=== PATIENT | male | born 1970 | race Caucasian/White ===

== ENCOUNTER 2017-01-10 21:24 | Emergency (ER) | payer MEDICAID ==
[2017-01-10 21:37] VITALS: BP 96/80; PULSE 53; RESP 16; TEMP 98.1; O2SAT 98
--- NOTE | 2017-01-10 22:32 | EDPHY ---
H & P Stated Complaint: R lateral knee pain after running. Time Seen by Provider: 01/10/17 22:31 - Personal History Current Tetanus/Diphtheria Vaccine: Unsure Current Tetanus Diphtheria and Acellular Pertussis (TDAP): Unsure - Medical/Surgical History Hx Asthma: No Hx Chronic Respiratory Disease: No Hx Diabetes: No Hx Cardiac Disease: No Hx Renal Disease: No Hx Cirrhosis: No Hx Alcoholism: Yes Hx HIV/AIDS: No Hx Splenectomy or Spleen Trauma: No Other PMH: anxiety, hx alcoholism, depression. - Social History Smoking Status: Never smoked Constitutional: Initial Vital Signs Temperature (C) 36.7 C 01/10/17 21:33 Heart Rate 53 L 01/10/17 21:33 Respiratory Rate 16 01/10/17 21:33 Blood Pressure 96/80 L 01/10/17 21:33 O2 Sat (%) 98 01/10/17 21:33 O2 Delivery Mode Room Air Allergies/Adverse Reactions: No Known Allergies Allergy (Verified 01/10/17 21:37) Home Medications: Medication Instructions Recorded Ibuprofen [Motrin (*)] 200 mg PO DAILY PRN 03/02/16 Acetaminophen [Tylenol 325mg (*)] 650 mg PO Q4 PRN #0 tab 03/04/16 Hydrocodone/APAP 5/325 [[place] 1 - 2 each PO Q4-6PRN PRN #11 tab 01/10/17 5/325] Medical Decision Making - Diagnostics Imaging Results: Imaging Impressions Knee X-Ray 01/10/17 22:36 Impression: 1. There is no acute or subacute osseous abnormality. If there is further clinical concern regarding the patient's lateral knee pain, consider MR imaging. 2. Vascular calcifications. Clinical correlation is suggested. Imaging: I viewed and interpreted images myself ED Course/Re-evaluation: CHIEF COMPLAINT: Right knee pain HISTORY OF PRESENT ILLNESS: The patient is a 46 y/o male complaining of right knee pain onset 2 weeks ago while running. He denies any obvious precipitating trauma. His pain is aggravated by bearing weight. No weakness or paresthesias. Patient has a history of alcoholism. REVIEW OF SYSTEMS: A 10 point review of systems was performed and is negative with the exception of the elements mentioned in the history of present illness. PHYSICAL EXAM: HR, BP, O2 Sat, RR. Temp noted General Appearance: Alert, well hydrated, appropriate, and non-toxic appearing. Head: Atraumatic without scalp tenderness or obvious injury Eyes: Pupils equal, round, reactive to light and accommodation, EOMI, no trauma , no injection. Ears: Clear bilaterally, no perforation, normal landmarks Nose: Atraumatic, no rhinorrhea, clear. Throat: There is no erythema or exudates, no lesions, normal tonsils, mucus membranes moist. Neck: Supple, nontender, no lymphadenopathy. Respiratory: No retractions, no distress, no wheezes, and no accessory muscle use. Lungs are clear to auscultation bilaterally. Cardiovascular: Regular rate and rhythm, no murmurs, rubs, or gallops. Good capillary refill all extremities. Gastrointestinal: Abdomen is soft, nontender, non-distended, no masses, no rebound, no guarding, no peritoneal signs. Musculoskeletal: Mild tenderness to right lateral knee. Normal active ROM of all extremities, atraumatic. Neurological: Alert, appropriate, and interactive. Nonfocal neuro exam. Skin: No rashes, good turgor, no nodules on palpation. Past medical history: Alcoholism Past surgical history: denies Family history: noncontributory Social history: Avid runner. Lives in [place]. Alcoholism DIAGNOSTICS/PROCEDURES/CRITICAL CARE TIME: Knee x-ray: negative DIFFERENTIAL DIAGNOSIS: The differential diagnosis for the patient's knee injury included but was not limited to fracture, ligamentous injury, contusion, muscular strain, and meniscus injury. MEDICAL DECISION MAKING: This is a 46 y/o male who presents with a 2-week history of right knee pain that began while running. He has been able to bear weight, but with some pain. He is neurovascularly intact. Plan for x-ray imaging to rule out fracture. X-ray is negative. Reassessed patient and recommended outpatient follow up with ortho. He will be discharged in a knee immobilizer. Standard return precautions given. He is comfortable with this plan. Departure - Departure Disposition: Home, Routine, Self-Care Clinical Impression: Knee sprain Qualifiers: Encounter type: initial encounter Involved ligament of knee: other ligament Laterality: right Qualified Code(s): S83.8X1A - Sprain of other specified parts of right knee, initial encounter Condition: Good Instructions: Knee Sprain (ED), Knee Pain (ED) Additional Instructions: Wear knee immobilizer for comfort. Follow up with orthopedist in the next week. Referrals: Kera Bales [Primary Care Provider] - As per Instructions Dale Winn MD [Medical Doctor] - As per Instructions Prescriptions: Hydrocodone/APAP 5/325 [[place] 5/325] 1 - 2 each PO Q4-6PRN PRN #11 tab PRN Reason: Pain, Moderate Report Scribed for: Reji Longoria Report Scribed by: Juju Sheridan Date of Report: 01/10/17 Time of Report: 22:36
[2017-01-10] MEDS ORDERED: HYDROCOD/APAP 5/325 PREPACK#6 BTL TAKEHOME ONE (22:36)
== END 2017-01-10 23:18 | disposition home or self-care (01) ==
DX: S83.8X1A Sprain of other specified parts of right knee, initial encounter (principal); X58.XXXA Exposure to other specified factors, initial encounter; Y93.02 Activity, running